=== PATIENT | male | born 1970 | race Caucasian/White ===

== ENCOUNTER 2017-12-05 16:41 | Observation (INO) | payer MEDICAID ==
[~2017-12-05] VITALS: Ht 172.7 cm; Wt 78.7 kg
[2017-12-05] MEDS ORDERED: OLAN2.5T3 PO (17:39)
[2017-12-05] MEDS ORDERED: ARIP441S INJ (17:40)
[2017-12-05] MEDS ORDERED: DOXE10CA PO (17:40)
[2017-12-05 17:55] LABS: BASOPHILS # (AUTO) 0.04 x10^3/uL (0-0.1); BASOPHILS % (AUTO) 0 % (0-1); EOSINOPHILS # (AUTO) 0.12 x10^3/uL (0-0.4); EOSINOPHILS % (AUTO) 1 % (1-7); LYMPHOCYTES # (AUTO) 1.77 x10^3/uL (1-3.4); LYMPHOCYTES % (AUTO) 20 % (22-44); MD NO; MEAN CORPUSCULAR HEMOGLOBIN 31.5 pg (27.5-34.5); MEAN CORPUSCULAR HGB CONC 33.8 g/dL (33.2-36.2); MEAN CORPUSCULAR VOLUME 93.2 fL (81-97); MEAN PLATELET VOLUME 9.6 fL (7.4-10.4); MONOCYTES # (AUTO) 0.46 x10^3/uL (0.2-0.8); MONOCYTES % (AUTO) 5 % (2-9); NEUTROPHILS # (AUTO) 6.52 x10^3/uL (1.8-6.8); NEUTROPHILS % (AUTO) 73 % (42-75); PLATELET COUNT 216 x10^3/uL (130-400); RED BLOOD COUNT 4.95 x10^6/uL (4.38-5.82); RED CELL DISTRIBUTION WIDTH 13.6 % (9.4-14.8)
[2017-12-05 18:03] LABS: ALBUMIN 3.5 g/dL (3.4-5.0); ANION GAP 7 mmol/L (5-15); CALCIUM 8.1 mg/dL (8.5-10.1); CHLORIDE 111 mmol/L (98-107)
[2017-12-05 18:04] LABS: SALICYLATE LEVEL < 1.7 mg/dL (2.8-20.0)
[2017-12-05 18:07] LABS: ALANINE AMINOTRANSFERASE 59 U/L (12-78); ALKALINE PHOSPHATASE 86 U/L (45-117); BILIRUBIN,TOTAL 0.5 mg/dL (0.2-1.0); CREATININE 0.85 mg/dL (0.7-1.3); TOTAL PROTEIN 6.9 g/dL (6.4-8.2)
[2017-12-05 18:12] LABS: AMPHETAMINE SCREEN, URINE Negative (Negative); BARBITURATE SCREEN, URINE Negative (Negative); BENZODIAZEPINE SCREEN, URINE Negative (Negative); CANNABINOID SCREEN, URINE Positive (Negative); COCAINE SCREEN, URINE Negative (Negative); METHADONE SCREEN, URINE Negative (Negative); OPIATE SCREEN, URINE Negative (Negative)
[2017-12-05 18:13] LABS: ACETAMINOPHEN < 2 mcg/mL (10-30)
[2017-12-05 18:23] LABS: MICROSCOPIC INDICATED
[2017-12-05 18:34] LABS: CULTURE INDICATED? NO
[2017-12-05] MEDS: NICOTINE 21 MG/24 HR PATCH.TD24 TD SCH (21:30)
[2017-12-05] MEDS ORDERED: POLYETHYLENE GLYCOL 17 GM PACKET PO PRN (21:30)
[2017-12-05] MEDS ORDERED: ACETAMINOPHEN 325 MG TABLET PO PRN (21:30)
[2017-12-05] MEDS: LORazepam 1MG TABLET PO SCH (22:00)
[2017-12-05] MEDS: OLANZAPINE 5 MG TABLET PO SCH (22:00)
[2017-12-05 22:15] VITALS: BP 127/83
[2017-12-06 08:11] VITALS: BP 146/93
[2017-12-06] MEDS: OLANZAPINE 5 MG TABLET PO SCH ×3 (08:12→21:17)
[2017-12-06] MEDS ORDERED: OLAN5TAB9 PO (08:49)
[2017-12-06 14:19] VITALS: BP 148/96
[2017-12-06] MEDS: LORazepam 1MG TABLET PO PRN (14:30)
[2017-12-06 19:08] VITALS: BP 128/78
[2017-12-06] MEDS: LORazepam 1MG TABLET PO SCH (21:17)
[2017-12-06] MEDS: NICOTINE 21 MG/24 HR PATCH.TD24 TD SCH (21:18)
[2017-12-07 07:14] VITALS: BP 136/87
[2017-12-07] MEDS: LORazepam 1MG TABLET PO PRN (14:19)
[2017-12-07 19:23] VITALS: BP 118/78
[2017-12-07] MEDS: OLANZAPINE 5 MG TABLET PO SCH (20:59)
[2017-12-07] MEDS: LORazepam 1MG TABLET PO SCH (20:59)
[2017-12-07] MEDS: NICOTINE 21 MG/24 HR PATCH.TD24 TD SCH (20:59)
[2017-12-08 07:30] VITALS: BP 130/79
[2017-12-08 20:00] VITALS: BP 115/78
[2017-12-08] MEDS: LORazepam 1MG TABLET PO SCH (20:38)
[2017-12-08] MEDS: NICOTINE 21 MG/24 HR PATCH.TD24 TD SCH (20:39)
[2017-12-08] MEDS: DOXEPIN 25 MG CAPSULE PO SCH ×2 (20:39→22:11)
[2017-12-08] MEDS: OLANZAPINE 5 MG TABLET PO SCH (20:39)
[2017-12-09] MEDS: ONDANSETRON ODT 4 MG PO PRN ×2 (04:26→14:47)
[2017-12-09 08:00] VITALS: BP 121/87
[2017-12-09] MEDS: NICOTINE GUM 4 MG BC PRN ×3 (11:09→21:50)
[2017-12-09] MEDS: LORazepam 1MG TABLET PO PRN ×2 (15:09→19:01)
[2017-12-09 19:20] VITALS: BP 106/83
[2017-12-09] MEDS: OLANZAPINE 5 MG TABLET PO SCH (20:35)
[2017-12-09] MEDS: DOXEPIN 25 MG CAPSULE PO SCH (20:36)
[2017-12-09] MEDS: NICOTINE 21 MG/24 HR PATCH.TD24 TD SCH (20:36)
[2017-12-09] MEDS: LORazepam 1MG TABLET PO SCH (21:00)
[2017-12-09] MEDS ORDERED: DOXEPIN 25 MG CAPSULE PO SCH (21:00)
[2017-12-10 08:00] VITALS: BP 137/85
[2017-12-10] MEDS: LORazepam 1MG TABLET PO PRN ×2 (08:24→13:28)
[2017-12-10] MEDS: NICOTINE GUM 4 MG BC PRN ×2 (08:24→12:24)
== END 2017-12-10 14:17 ==
LOC: SUATTDRO 21:10 → ED 21:31 → EDIP 21:33 → 2N 21:40
PROVIDERS: ADMIT Hospitalist; ATTEND Hospitalist
DX: R45.851 Suicidal ideations (principal); F25.9 Schizoaffective disorder, unspecified; F12.90 Cannabis use, unspecified, uncomplicated; F17.210 Nicotine dependence, cigarettes, uncomplicated; Z91.5 Personal history of self-harm
CPT/HCPCS: 36415; 80053; 80307; 80329; 81001; 85025; 99285; G0378; Q0162; G0480

== ENCOUNTER 2018-02-01 19:09 | Emergency (ER) | payer MEDICAID ==
[~2018-02-01] VITALS: Ht 172.7 cm; Wt 83.0 kg
[~2018-02-01 19:09] MED LIST: ARIP441S INJ; DOXE10CA PO; OLAN2.5T3 PO; OLAN5TAB9 PO
[2018-02-01 19:31] LABS: BASOPHILS # (AUTO) 0.05 x10^3/uL (0-0.1); BASOPHILS % (AUTO) 1 % (0-1); EOSINOPHILS # (AUTO) 0.14 x10^3/uL (0-0.4); EOSINOPHILS % (AUTO) 2 % (1-7); LYMPHOCYTES # (AUTO) 1.71 x10^3/uL (1-3.4); LYMPHOCYTES % (AUTO) 19 % (22-44); MD NO; MEAN CORPUSCULAR HEMOGLOBIN 32.2 pg (27.5-34.5); MEAN CORPUSCULAR HGB CONC 34.8 g/dL (33.2-36.2); MEAN CORPUSCULAR VOLUME 92.4 fL (81-97); MEAN PLATELET VOLUME 9.2 fL (7.4-10.4); MONOCYTES # (AUTO) 0.52 x10^3/uL (0.2-0.8); MONOCYTES % (AUTO) 6 % (2-9); NEUTROPHILS % (AUTO) 73 % (42-75); PLATELET COUNT 223 x10^3/uL (130-400); RED BLOOD COUNT 4.72 x10^6/uL (4.38-5.82); RED CELL DISTRIBUTION WIDTH 13.9 % (9.4-14.8)
[2018-02-01 19:43] LABS: ALBUMIN 3.7 g/dL (3.4-5.0); ANION GAP 8 mmol/L (5-15); CALCIUM 8.1 mg/dL (8.5-10.1); CHLORIDE 113 mmol/L (98-107)
[2018-02-01 19:46] LABS: ALANINE AMINOTRANSFERASE 132 U/L (12-78); ALKALINE PHOSPHATASE 84 U/L (45-117); BILIRUBIN,TOTAL 0.2 mg/dL (0.2-1.0); CREATININE 0.77 mg/dL (0.7-1.3); TOTAL PROTEIN 7.3 g/dL (6.4-8.2)
[2018-02-01 19:53] LABS: ACETAMINOPHEN < 2 mcg/mL (10-30); SALICYLATE LEVEL < 1.7 mg/dL (2.8-20.0)
[2018-02-01 20:36] LABS: AMPHETAMINE SCREEN, URINE Negative (Negative); BARBITURATE SCREEN, URINE Negative (Negative); BENZODIAZEPINE SCREEN, URINE Negative (Negative); CANNABINOID SCREEN, URINE Positive (Negative); COCAINE SCREEN, URINE Negative (Negative); METHADONE SCREEN, URINE Negative (Negative); OPIATE SCREEN, URINE Negative (Negative)
[2018-02-02 03:21] VITALS: BP 142/88
== END 2018-02-02 03:21 | disposition home or self-care (01) ==
LOC: ED 23:28
DX: F32.3 Major depressive disorder, single episode, severe with psychotic features (principal); F17.210 Nicotine dependence, cigarettes, uncomplicated; Z72.89 Other problems related to lifestyle; Z91.14 Patient's other noncompliance with medication regimen; Z60.9 Problem related to social environment, unspecified; Z59.0 Homelessness
CPT/HCPCS: 36415; 80053; 80307; 80329; 85025; 99284; G0480